=== PATIENT | male | born 2005 | race Caucasian/White ===

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

== ENCOUNTER 2024-12-10 12:57 | Emergency (ER) | payer SELFPAY ==
[2024-12-10 12:59] VITALS: BP 131/71; PULSE 80; RESP 18; TEMP 35.8; O2SAT 100
--- NOTE | 2024-12-10 13:08 | EX.ED.UPPERE ---
HPI History of Present Illness Chief Complaint: Laceration Narrative Narrative: 3-year-old male who denies significant past medical history presents with injury to his left thumb that occurred just prior to arrival. He was using fresh blade on a box car washer. He states that he accidentally incised the dorsum of his left thumb. His tetanus immunization is current. He denies other injuries. He does not take any blood thinners. [facility] Medical History (Updated 12/10/24 @ 13:46 by Hi Watson MD) Arrhythmia Allergy/AdvReac Type Severity Reaction Status Date / Time No Known Allergies Allergy Verified 12/10/24 12:59 Social History Smoking Status: Never smoker ROS ROS ED ROS Narrative Review of systems positive for laceration to dorsum of left thumb. Denies other injuries. EXAM Physical Exam Narrative Exam Narrative: GCS 15. ABCs are intact. Inspection of the left thumb shows him able to move, flex and extend at IP joint. +1.3 cm laceration flap-like on dorsum of left thumb, no active bleeding. Good capillary refill of thumb. No crepitance. Const Vital Signs: 12/10/24 12:59 Temperature 96.5 F L Temperature Source Temporal Pulse Rate 80 Respiratory Rate 18 Blood Pressure 131/71 H Blood Pressure Mean 91 Pulse Ox 100 Oxygen Delivery Method Room Air MDM MDM MDM Narrative Medical decision making narrative: Feel differential diagnosis is applicable. In discussion with the patient, he prefers that his wound is not sutured. Given its flap-like nature, wound was cleansed after soaking with both Shur-Clens and saline. Skin adhesive was used. He was told the risk of infection and scarring and acknowledges an understanding, large bulky dressing was applied by RN afterwards. He will follow-up with his primary care provider. Return instructions to the emergency department were reviewed. Disposition is discharged home in stable condition. History & Record Review Discussion w/independent historian: Patient Discharge Plan Triage Chief Complaint: Laceration ED Provider: Hi Watson Dx/Rx/DC Orders Clinical Impression: Laceration of thumb Instructions: ED Hand Laceration- All Closures, ED Laceration, Skin Adhesive Primary Care Provider: Clayton Gerardo NP Referrals: Clayton Gerardo NP, [employer] [Primary Care Provider, Pediatrics] - 2 Days for wound check Activity Restrictions/Additional Instructions: Tylenol or ibuprofen as needed for pain. Return with redness of thumb, fever, red streak up your arm, new or worsening symptoms. Have a wound check performed by your primary care provider in 2 days. Print Language: Danish Disposition Disposition: Home, Self Care Discharge Date/Time: 12/10/24 13:56
== END 2024-12-10 13:56 | disposition home or self-care (01) ==
PROVIDERS: Emergency Provider Emergency Medicine; PCP Nurse Practitioner; Visit Provider Emergency Medicine
DX: S61.012A Laceration without foreign body of left thumb without damage to nail, initial encounter (principal); W26.8XXA Contact with other sharp object(s), not elsewhere classified, initial encounter
CPT/HCPCS: 99282